=== PATIENT | female | born 1990 | race Hispanic/Latino ===

== ENCOUNTER 2021-09-02 07:44 | Outpatient (CLI) | payer OTHER | END 2021-09-02 07:45 | disposition home or self-care (01) | LOC: BICULT 07:44 | PROVIDERS: ATTEND Family Medicine | DX: Z34.02 Encounter for supervision of normal first pregnancy, second trimester (principal); Z3A.20 20 weeks gestation of pregnancy | CPT/HCPCS: 76805 ==